=== PATIENT | male | born 1965 | race Caucasian/White ===

== ENCOUNTER 2019-02-17 11:57 | Emergency (ER) | payer BC, OTHER ==
[2019-02-17 12:09] VITALS: BP 123/61; PULSE 78; TEMP 97.9; BMI 39.5
--- NOTE | 2019-02-17 12:59 | PDOC ---
History of Present Illness - General Chief Complaint: Foreign Body (FB) Stated Complaint: RT EYE INJURY Time Seen by Provider: 02/17/19 12:28 History Source: Patient Exam Limitations: No Limitations (R eye irritation, possible foreign body) - History of Present Illness Associated Symptoms: denies: fever/chills Past History - Travel Traveled outside of the country in the last 30 days: No Close contact w/someone who was outside of country & ill: No - Past Medical History Allergies/Adverse Reactions: Allergies Allergy/AdvReac Type Severity Reaction Status Date / Time No Known Allergies Allergy Verified 02/17/19 12:06 Home Medications: Ambulatory Orders Erythromycin 0.5% Eye Ointment [Erythromycin 0.5% Eye Ointment -] 1 applic OU QID 7 Days #1 tube 02/17/19 COPD: No - Suicide/Smoking/Psychosocial Hx Smoking History: Never smoked Review of Systems - Review of Systems Constitutional: No: Chills, Fever HEENTM: Yes: Tearing (R eye). No: Eye Pain, Blurred Vision, Recent change in vision, Double Vision Neurological: No: Headache, Numbness *Physical Exam - Vital Signs Last Vital Signs Temp Pulse Resp BP Pulse Ox 97.9 F 78 18 123/61 99 02/17/19 12:07 02/17/19 12:07 02/17/19 12:07 02/17/19 12:07 02/17/19 12:07 - Physical Exam General Appearance: Yes: Nourished HEENT: positive: EOMI, DAVON, Other (injected R conjunctiva) Cardiovascular: positive: Regular Rhythm, Regular Rate, S1, S2 Medical Decision Making - Medical Decision Making 02/17/19 14:17 53y/o M with R eye irritation since last night, states he feels like something iis in his eye 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 Cueva and particle that was seen earlier disappeared, + uptake still noted at 6 clock Rx for erythromycin ointment was sent to pharmacy f/u ophthalmology *DC/Admit/Observation/Transfer Diagnosis at time of Disposition: Corneal abrasion, right Qualifiers: Encounter type: initial encounter Qualified Code(s): S05.01XA - Injury of conjunctiva and corneal abrasion without foreign body, right eye, initial encounter - Discharge Dispostion Disposition: HOME Condition at time of disposition: Stable Decision to Admit order: No - Prescriptions Prescriptions: Erythromycin 0.5% Eye Ointment [Erythromycin 0.5% Eye Ointment -] 1 applic OU QID 7 Days #1 tube - Referrals Referrals: Iliana Alvarez MD [Staff Physician] - - Patient Instructions Printed Discharge Instructions: DI for Corneal Abrasion Additional Instructions: You were seen in the ER for possible foreign body in the right eye please use medication as prescribed follow up with eye doctor in 2-3 days if symptoms worsening return to the Emergency Department if worsening symptoms occurs. - Post Discharge Activity
== END 2019-02-17 13:12 | disposition home or self-care (01) ==
LOC: JERFT 11:57
PROC: 4A07X0Z Measurement of Visual Acuity, External Approach (ICD-10-PCS; principal; 2019-02-17)
PROC: 08C8XZZ Extirpation of Matter from Right Cornea, External Approach (ICD-10-PCS; 2019-02-17)
DX: T15.01XA Foreign body in cornea, right eye, initial encounter (principal); X58.XXXA Exposure to other specified factors, initial encounter; Y93.H3 Activity, building and construction; Y92.69 Other specified industrial and construction area as the place of occurrence of the external cause; Y99.0 Civilian activity done for income or pay
CPT/HCPCS: 99281-25